=== PATIENT | male | born 1955 | race Caucasian/White ===

== ENCOUNTER 2021-09-08 08:27 | Inpatient (IN) | payer OTHER ==
[~2021-09-08] VITALS: Ht 165.1 cm; Wt 43.4 kg
[~2021-09-08 08:27] MED LIST: ASPI81EC PO; LISI20 PO; METO25ER PO; NAPR500 PO; Norco 5-325 Ta1 EACH PO; SIMV10 PO
[2021-09-08] MEDS ORDERED: MS CONTIN30 M6 PO (08:59)
[2021-09-08] MEDS ORDERED: TRAM50 PO (09:00)
[2021-09-08] MEDS ORDERED: FUROSEMIDE40 MG PO (09:00)
[2021-09-08 09:45] LABS: BASOPHILS ABSOLUTE AUTO 0.02 K/mm3 (0.00-0.23); BASOPHILS PERCENT AUTO 0 % (0-2); EOSINOPHILS PERCENT AUTO 0 % (0-6); Hematocrit 43.6 % (37.0-53.0); Hemoglobin 14.3 g/dL (13.5-17.5); IMMATURE GRAN ABSOLUTE AUTO 0.05 K/mm3 (0.00-0.10); IMMATURE GRAN PERCENT AUTO 0 % (0-1); LYMPHOCYTES ABSOLUTE AUTO 0.55 K/mm3 (0.84-5.20); LYMPHOCYTES PERCENT AUTO 5 % (21-46); MONOCYTES ABSOLUTE AUTO 0.63 K/mm3 (0.16-1.47); MONOCYTES PERCENT AUTO 6 % (4-13); Mean Corpuscular HGB 26.4 pg (26.0-34.0); Mean Corpuscular HGB Conc 32.8 g/dL (31.5-36.5); Mean Corpuscular Volume 81 fL (80-100); Mean Platelet Volume 9.4 fL (9.1-12.4); NEUTROPHILS ABSOLUTE AUTO 9.93 K/mm3 (1.96-9.15); NEUTROPHILS PERCENT AUTO 89 % (41-73); Platelet Count 305 K/mm3 (150-400); RDW Coefficient Variation 14.6 % (11.7-14.2); RDW Standard Deviation 42.8 fL (35.1-46.3); Red Blood Cell Count 5.41 M/mm3 (4.30-5.90); White Blood Cell Count 11.18 K/mm3 (4.00-11.30)
[2021-09-08 10:06] LABS: Alanine Aminotransfer (ALT/SGP 65 U/L (12-78); Albumin, Blood 3.2 g/dL (3.4-5.0); Albumin/Globulin Ratio 0.8 (0.8-1.8); Alk Phos 214 U/L (50-136); Anion Gap 12 mmol/L (6-16); Aspartate Aminotrans (AST/SGOT 60 U/L (12-37); Bilirubin, Total 0.6 mg/dL (0.1-1.0); Blood Urea Nitrogen 15 mg/dL (8-24); Bun/Creatinine Ratio 16.1 (12.0-20.0); CO2, Blood 24 mmol/L (21-32); Calcium, Blood 9.6 mg/dL (8.5-10.1); Chloride, Blood 100 mmol/L (98-108); Creatinine, Blood 0.93 mg/dL (0.60-1.20); Glomerular Filtration Rate >60 (60-); Glucose, Blood 147 mg/dL (70-99); Potassium, Blood 4.1 mmol/L (3.5-5.5); Sodium, Blood 136 mmol/L (136-145); Total Protein, Blood 7.2 g/dL (6.4-8.2)
[2021-09-08 10:29] LABS: Source, Urine Clean Catch
[2021-09-08 10:41] LABS: Appearance, Urine Cloudy (Clear); Bilirubin, Urine Neg (Neg); Blood, Urine 4+ (Neg); Color, Urine Yellow (P-Yellow); Glucose Qualitative, Urine 3+ (Neg); Ketones, Urine 3+ (Neg); Leukocyte Esterase, Urine Neg (Neg); Nitrite, Urine Neg (Neg); Protein, Urine 2+ (Neg); Specific Gravity, Urine 1.025 (1.003-1.022); Urobilinogen, Urine NORM (Normal)
[2021-09-08 10:56] LABS: Bacteria Mod /hpf; Squamous Epithelial Cells Few /hpf (Few); White Blood Cells, Urine 0-2 /hpf (0-5)
[2021-09-08 11:03] LABS: U Amphetamine Screen Not Detected; U Benzodiazapine Screen DETECTED; U Cannabinoids Screen DETECTED; U Opiates Screen DETECTED
[2021-09-08 11:04] LABS: U Barbituate Screen Not Detected; U Buprenorphine Screen Not Detected; U Cocaine Screen Not Detected; U Methadone Screen Not Detected; U Methamphetamine Screen Not Detected; U Oxycodone Screen Not Detected; U Phencyclidine Screen Not Detected; U Propoxyphene Screen Not Detected
[2021-09-08 11:19] LABS: Free Thyroxine 1.3 ng/dL (0.70-1.60); Thyroid Stimulating Hormone 1.26 uIU/mL (0.360-4.800)
[2021-09-08 11:46] LABS: Influenza A, PCR NEGATIVE (NEGATIVE); Influenza B, PCR NEGATIVE (NEGATIVE); Resp Syncytial Virus, PCR NEGATIVE (NEGATIVE); SARS-Cov-2 (COVID-19) PCR, MMC NEGATIVE (NEGATIVE)
[2021-09-08 16:12] LABS: International Normalized Ratio 1.01; Prothrombin Time Results 10.6 Sec (9.7-11.5)
--- NOTE | 2021-09-08 17:36 | NUR ---
Telephone report from [facility] at this time. Anticipate arrival of pt to PCU 1 shortly.
--- NOTE | 2021-09-08 18:23 | NUR ---
PT IS COMPLETELY UNABLE TO GIVE ANY HISTORY OR INFORMAION.
--- NOTE | 2021-09-09 05:37 | NUR ---
SHIFT SUMMARY PATIENT RESPONSIVENESS IMPROVED MODERATLY THROUGHOUT SHIFT. WOULD GET RESTLESS UPON WAKING BUT OTHER NO VERBAL RESPONSE AND NOT FOLLOWING COMMANDS. NOW RESPONDS SOME VERBALLY, NOT YET ORIENTED BUT IMPROVING. DUMONT. FOLLOWING SOME COMMANDS. CONTINUES TO TRY AND PULL LINES AND GET OOB SO BILATERAL WRIST RESTRAINTS AND FALL PRECAUTIONS IN PLACE.PRN ATIVAN GIVEN X2 FOR AGITATION WITH DECENT RELIEF. FENT ADDED FOR PAIN CONTROL PATIENT APPEARS TO BE GRIMACING AND TAKES A LOT OF PAIN MEDS AT HOME. ON RA. VITALS IMPROVED FROM START OF SHIFT WITH HR NOW IN THE 80'S DOWN FROM 120'S. STILL HYPERTENSIVE AT TIMES. NPO UNTIL MENTATION IMPROVES. INCONTINENT OF URINE AND FRESH ATTENDS IN PLACE. Q2H TURNS AND ORAL CARE PERFORMED. IV ABX AND FLUIDS RUNNING PER ORDER. NO ACUTE CONCERNS AT THIS TIME. WILL CONTINUE TO MONITOR UNTIL REPORT GIVEN TO JESSICA RN.
[2021-09-09 05:55] LABS: BASOPHILS ABSOLUTE AUTO 0.04 K/mm3 (0.00-0.23); BASOPHILS PERCENT AUTO 0 % (0-2); EOSINOPHILS PERCENT AUTO 0 % (0-6); Hematocrit 34.4 % (37.0-53.0); Hemoglobin 11.5 g/dL (13.5-17.5); IMMATURE GRAN ABSOLUTE AUTO 0.05 K/mm3 (0.00-0.10); IMMATURE GRAN PERCENT AUTO 0 % (0-1); LYMPHOCYTES ABSOLUTE AUTO 1.27 K/mm3 (0.84-5.20); LYMPHOCYTES PERCENT AUTO 11 % (21-46); MONOCYTES ABSOLUTE AUTO 1.17 K/mm3 (0.16-1.47); MONOCYTES PERCENT AUTO 10 % (4-13); Mean Corpuscular HGB 26.9 pg (26.0-34.0); Mean Corpuscular HGB Conc 33.4 g/dL (31.5-36.5); Mean Corpuscular Volume 80 fL (80-100); Mean Platelet Volume 9.8 fL (9.1-12.4); NEUTROPHILS ABSOLUTE AUTO 9.09 K/mm3 (1.96-9.15); NEUTROPHILS PERCENT AUTO 78 % (41-73); Platelet Count 227 K/mm3 (150-400); RDW Standard Deviation 43.8 fL (35.1-46.3); Red Blood Cell Count 4.28 M/mm3 (4.30-5.90); White Blood Cell Count 11.62 K/mm3 (4.00-11.30)
[2021-09-09 06:03] LABS: International Normalized Ratio 1.03; Prothrombin Time Results 10.8 Sec (9.7-11.5)
[2021-09-09 06:09] LABS: Alanine Aminotransfer (ALT/SGP 44 U/L (12-78); Albumin, Blood 2.3 g/dL (3.4-5.0); Albumin/Globulin Ratio 0.6 (0.8-1.8); Alk Phos 142 U/L (50-136); Anion Gap 10 mmol/L (6-16); Aspartate Aminotrans (AST/SGOT 90 U/L (12-37); Bilirubin, Total 0.4 mg/dL (0.1-1.0); Blood Urea Nitrogen 12 mg/dL (8-24); Bun/Creatinine Ratio 15.2 (12.0-20.0); CO2, Blood 22 mmol/L (21-32); Calcium, Blood 8.1 mg/dL (8.5-10.1); Chloride, Blood 107 mmol/L (98-108); Creatinine, Blood 0.79 mg/dL (0.60-1.20); Globulin, Blood 3.7 g/dL (2.2-4.0); Glomerular Filtration Rate >60 (60-); Glucose, Blood 88 mg/dL (70-99); Magnesium, Blood 1.6 mg/dL (1.6-2.4); Potassium, Blood 3.6 mmol/L (3.5-5.5); Sodium, Blood 139 mmol/L (136-145)
[2021-09-09 11:37] LABS: Automated CSF WBC Count 0.005 K/mm3 (0-5); WBC Count, CSF 5 /mm3 (0-5)
[2021-09-09 11:40] LABS: Automated CSF WBC Count 0.011 K/mm3 (0-5); WBC Count, CSF 11 /mm3 (0-5)
[2021-09-09 12:06] LABS: Color, CSF No Color (No Color); RBC Count, CSF 0 /mm3 (0-0)
[2021-09-09 12:07] LABS: Appearance, CSF Clear (Clear)
[2021-09-09 12:11] LABS: Appearance, CSF Clear (Clear); Color, CSF No Color (No Color); Glucose, CSF 57 mg/dL (40-70); RBC Count, CSF 1 /mm3 (0-0)
[2021-09-09 12:19] LABS: Lymphocytes, CSF 6 % (40-80); Monocytes, CSF 5 % (15-45); Neutrophils, CSF 89 % (0-6)
[2021-09-09 12:23] LABS: Lymphocytes, CSF 2 % (40-80); Monocytes, CSF 4 % (15-45); Neutrophils, CSF 94 % (0-6)
[2021-09-09 12:32] LABS: Cryptococcus Neoformans/Gattii Not Detected (NOT DETECT); Enterovirus Not Detected (NOT DETECT); Escherichia Coli K1 Not Detected (NOT DETECT); Haemophilus Influenza Not Detected (NOT DETECT); Herpes Simplex Virus 1 Not Detected (NOT DETECT); Herpes Simplex Virus 2 Not Detected (NOT DETECT); Human Herpesvirus 6 Not Detected (NOT DETECT); Human Parechovirus Not Detected (NOT DETECT); Listeria Monocytogenes Not Detected (NOT DETECT); Neisseria Meningitidis Not Detected (NOT DETECT); Streptococcus Agalactiae Not Detected (NOT DETECT); Streptococcus Pneumoniae Not Detected (NOT DETECT); Varicella Zoster Virus Not Detected (NOT DETECT)
--- NOTE | 2021-09-09 18:14 | NUR ---
SHIFT SUMMARY; ASSUMED CARE AT 0700, BILATERAL WRIST RESTRAINTS IN PLACE. MOVES ON GURNEY WHEN TOUCHED, OPENS EYES AND SPEAKS ONE WORD ANSWERS WHEN SPOKEN TO. REPOSITIONS SELF IN BED. ATTENDS IN PLACE AND CHANGED SEVERAL TIMES DURING SHIFT. BRUISING NOTED TO SKIN SCATTERED T/O. MEPILEX ON COCCYX IN PLACE. LP COMPLETE TODAY. MOVES ALL FOUR EXTREMETIES BUT DOES NOT FOLLOW COMMANDS. MEDS PER EMAR. WILL CONTINUE TO MONITOR AND TREAT UNTIL CHANGE OF SHIFT.
[2021-09-10 04:11] LABS: BASOPHILS ABSOLUTE AUTO 0.03 K/mm3 (0.00-0.23); BASOPHILS PERCENT AUTO 0 % (0-2); EOSINOPHILS ABSOLUTE AUTO 0.01 K/mm3 (0.00-0.68); EOSINOPHILS PERCENT AUTO 0 % (0-6); Hematocrit 33.1 % (37.0-53.0); Hemoglobin 11.2 g/dL (13.5-17.5); IMMATURE GRAN ABSOLUTE AUTO 0.04 K/mm3 (0.00-0.10); IMMATURE GRAN PERCENT AUTO 0 % (0-1); LYMPHOCYTES ABSOLUTE AUTO 1.05 K/mm3 (0.84-5.20); LYMPHOCYTES PERCENT AUTO 10 % (21-46); MONOCYTES PERCENT AUTO 9 % (4-13); Mean Corpuscular HGB 26.9 pg (26.0-34.0); Mean Corpuscular HGB Conc 33.8 g/dL (31.5-36.5); Mean Corpuscular Volume 80 fL (80-100); Mean Platelet Volume 9.9 fL (9.1-12.4); NEUTROPHILS ABSOLUTE AUTO 8.22 K/mm3 (1.96-9.15); NEUTROPHILS PERCENT AUTO 80 % (41-73); Platelet Count 216 K/mm3 (150-400); RDW Standard Deviation 43.7 fL (35.1-46.3); Red Blood Cell Count 4.16 M/mm3 (4.30-5.90); White Blood Cell Count 10.25 K/mm3 (4.00-11.30)
[2021-09-10 05:03] LABS: Alanine Aminotransfer (ALT/SGP 41 U/L (12-78); Albumin, Blood 2.4 g/dL (3.4-5.0); Albumin/Globulin Ratio 0.8 (0.8-1.8); Alk Phos 125 U/L (50-136); Anion Gap 15 mmol/L (6-16); Aspartate Aminotrans (AST/SGOT 91 U/L (12-37); Bilirubin, Total 0.6 mg/dL (0.1-1.0); Blood Urea Nitrogen 13 mg/dL (8-24); Bun/Creatinine Ratio 14.9 (12.0-20.0); CO2, Blood 19 mmol/L (21-32); Calcium, Blood 8.6 mg/dL (8.5-10.1); Chloride, Blood 106 mmol/L (98-108); Creatinine, Blood 0.87 mg/dL (0.60-1.20); Globulin, Blood 3.2 g/dL (2.2-4.0); Glomerular Filtration Rate >60 (60-); Glucose, Blood 180 mg/dL (70-99); Potassium, Blood 3.5 mmol/L (3.5-5.5); Sodium, Blood 140 mmol/L (136-145); Total Protein, Blood 5.6 g/dL (6.4-8.2)
--- NOTE | 2021-09-10 06:07 | NUR ---
PT IS ALERT AND REGAINING ORIENTATION. CALM COOPERATIVE, APPROPRIATE FOR RESTRAINTE REMOVAL. CHILLS, TEMP 100.8, TACHYCARDIC 120-150. IMPROVED WITH CONTINUIOUS FLUIDS AND ABX. LOOSE MUCOUS STOOL. ORDERED STOOL PANEL.
--- NOTE | 2021-09-10 09:38 | NUR ---
PATIENT ALERT AND ORIENTED TO SELF, PLACE, FAMILY AND DATE. MENTATION STARTING TO CLEAR. PATIENT STATES "I CAN'T BELEIVE I DON'T REMEMBER MY OWN ADDRESS". VERY HAPPY, PLEASENT, AND COOPERATIVE WITH CARE. PERRLA. DENIES NUMBNESS/TINGLING. ABLE TO MOVE ALL EXTREMITIES. WEAK OVERALL AND WEAK BILATERAL CIGAR PATCHER STRENGTH. TELE SHOWING SINUS TACH WITH HR 100-110'S. DENIES CHEST PAIN/PRESSURE. BP STABLE. ON ROOM AIR, LUNGS SOUNDING CLEAR. NO COUGH AT THIS TIME. DENIES ABDOMINAL PAIN/NAUSEA. USING URINAL IN BED. URINE FLORENCIA IN COLOR. NS AND ANTIBIOTICS INFUSING. SKIN OVERALL FRAGILE AND JOYCE. SKIN WARM TO TOUCH. TMAX THIS AM 99.8. BLANKETS REMOVED AND TEMP TURNED DOWN IN ROOM. TOLERATING PO DIET AND PILL WITH WATER. CALL LIGHT IN REACH. TALKING WITH ON PHONE AT THIS TIME. CHEST XRAY DONE THIS AM. WILL CONTINUE TO MONITOR.
--- NOTE | 2021-09-10 13:44 | NUR ---
UPDATE: PATIENT BP ELEVATED. DR. KELLEY CALLED. PRN HYDRALAZINE GIVEN AND HOME MEDS ORDERED. BP NORMALIZING. PHYSICAL THERAPY IN TO WORK WITH PATIENT EARLIER THIS AFTERNOON. PATIENT FELT LIKE HEART WAS BEATING FAST. DENIED CHEST PAIN. HR ELEVATED TO 130'S WITH MOVEMENT. ABLE TO SIT ON EDGE OF BED. NOW BACK IN BED EATING LUNCH. DENIES NEEDS AT THIS TIME. CALL LIGHT IN REACH.
[2021-09-10] MEDS ORDERED: ALDACTONE100 M1 PO (15:58)
[2021-09-10] MEDS ORDERED: DEXA4 PO (15:58)
[2021-09-10 18:38] LABS: Vancomycin, Trough 9.2 ug/mL (5.0-10.0)
--- NOTE | 2021-09-10 18:42 | NUR ---
SHIFT SUMMARY: PATIENT MENTATION CONTINUES TO IMPROVE. NO CHANGES IN TELE, SEE PREVIOUS NOTE. BP STABLE. ON ROOM AIR. DENIES ABDOMINAL PAIN. ABLE TO STAND AND TRANSFER TO CHAIR TO CHANGE LINENS AND BRIEF. PATIENT HAD MODERATE SIZE BROWN AND JELLY LIKE BOWEL MOVEMENT. STOOL SAMPLE SENT TO LAB. USING URINAL AT BEDSIDE. ANTIBIOTICS INFUSED. PATIENT EATING WELL AND DRINKING WATER/JUICES. CALL LIGHT REMAINS IN REACH. BED ALARM ON FOR SAFETY. WILL CONTINUE TO MONITOR AND REPORT OFF.
[2021-09-11 05:08] LABS: BASOPHILS ABSOLUTE AUTO 0.04 K/mm3 (0.00-0.23); BASOPHILS PERCENT AUTO 0 % (0-2); EOSINOPHILS ABSOLUTE AUTO 0.03 K/mm3 (0.00-0.68); EOSINOPHILS PERCENT AUTO 0 % (0-6); Hematocrit 34.3 % (37.0-53.0); Hemoglobin 11.4 g/dL (13.5-17.5); IMMATURE GRAN ABSOLUTE AUTO 0.04 K/mm3 (0.00-0.10); IMMATURE GRAN PERCENT AUTO 0 % (0-1); LYMPHOCYTES ABSOLUTE AUTO 0.97 K/mm3 (0.84-5.20); LYMPHOCYTES PERCENT AUTO 11 % (21-46); MONOCYTES ABSOLUTE AUTO 0.87 K/mm3 (0.16-1.47); MONOCYTES PERCENT AUTO 9 % (4-13); Mean Corpuscular HGB 26.8 pg (26.0-34.0); Mean Corpuscular HGB Conc 33.2 g/dL (31.5-36.5); Mean Corpuscular Volume 81 fL (80-100); Mean Platelet Volume 9.6 fL (9.1-12.4); NEUTROPHILS ABSOLUTE AUTO 7.28 K/mm3 (1.96-9.15); NEUTROPHILS PERCENT AUTO 79 % (41-73); Platelet Count 236 K/mm3 (150-400); RDW Coefficient Variation 15.1 % (11.7-14.2); RDW Standard Deviation 44.2 fL (35.1-46.3); Red Blood Cell Count 4.26 M/mm3 (4.30-5.90); White Blood Cell Count 9.23 K/mm3 (4.00-11.30)
[2021-09-11 05:26] LABS: Albumin, Blood 2.3 g/dL (3.4-5.0); Anion Gap 6 mmol/L (6-16); Blood Urea Nitrogen 11 mg/dL (8-24); Bun/Creatinine Ratio 13.8 (12.0-20.0); CO2, Blood 27 mmol/L (21-32); Calcium, Blood 8.5 mg/dL (8.5-10.1); Chloride, Blood 108 mmol/L (98-108); Glomerular Filtration Rate >60 (60-); Glucose, Blood 108 mg/dL (70-99); Phosphorus, Blood 1.9 mg/dL (2.5-4.9); Potassium, Blood 3.3 mmol/L (3.5-5.5); Sodium, Blood 141 mmol/L (136-145)
--- NOTE | 2021-09-11 10:17 | NUR ---
PATIENT ALERT AND ORIENTED X3. MENTATION CONTINUES TO CLEAR. STILL CONFUSED AT TIMES ABOUT REASON HERE, MEDICATIONS RECIEVING AND WHAT HAPPENED YESTERDAY. PERRLA. ABLE TO MOVE ALL EXTREMITIES. DENIES NUMBNESS/TINGLING. ON ROOM AIR, LUNGS SOUNDING CLEAR. NO TELE. VITAL SIGNS STABLE. EDEMA NOTED IN HANDS AND FEET. TOLERATING PO DIET. DENIES ABDOMINAL PAIN/NAUSEA. USING URINAL IN BED. BED ALARM ON. UP TO BSC WHEN NEEDED WITH ASSISTANCE. DENIES OVERALL PAINS. ANTIBIOTICS INFUSED THIS AM AND POTASSIUM PHOSPHATE INFUSING AT THIS TIME. CALL LIGHT IN REACH. WATCHING TV AT THIS TIME. DENIES NEEDS. WILL CONTINUE TO MONTIOR.
--- NOTE | 2021-09-11 18:39 | NUR ---
SHIFT SUMMARY: MENTATION REMAINS THE SAME. AT TIMES CONFUSING STATEMENTS. TIMELINE OF EVENTS IS OFF. THINKING HE CAME IN LAST NIGHT. NO TELE. REMAINS ON ROOM AIR. EATING WELL. LOTS OF SNACKS. DENIES ABDOMINAL PAIN. UP TO BATHROOM WITH ONE PERSON ASSIST AND WALKER. ONE BOWEL MOVEMENT TODAY. ATTENDS IN PLACE. ANTIBIOTICS INFUSED. VITAL SIGNS STABLE. CALL LIGHT IN REACH. WILL CONTINUE TO MONITOR. BED ALARM ON.
--- NOTE | 2021-09-11 21:54 | NUR ---
ASSUMED CARE OF PATIENT AT 1900. A/OX4. MAINTAINS ABOVE 95% ON RA. LS CLEAR T/O. BLE 2+ PITTING EDEMA (FEET), AND 1+ PITTING EDEMA BUE. PT C/O BEING UNABLE TO SLEEP, MELATONIN WAS ORDERED AND PT IS SLEEPING CURRENTLY. REPORTS NO PAIN, CP/PRESSURE, N/V. WILL UPDATE CHANGES OCCUR.
[2021-09-12 04:30] LABS: BASOPHILS ABSOLUTE AUTO 0.04 K/mm3 (0.00-0.23); BASOPHILS PERCENT AUTO 0 % (0-2); EOSINOPHILS ABSOLUTE AUTO 0.07 K/mm3 (0.00-0.68); EOSINOPHILS PERCENT AUTO 1 % (0-6); Hematocrit 32.3 % (37.0-53.0); Hemoglobin 10.9 g/dL (13.5-17.5); IMMATURE GRAN ABSOLUTE AUTO 0.04 K/mm3 (0.00-0.10); IMMATURE GRAN PERCENT AUTO 0 % (0-1); LYMPHOCYTES ABSOLUTE AUTO 1.33 K/mm3 (0.84-5.20); LYMPHOCYTES PERCENT AUTO 14 % (21-46); MONOCYTES ABSOLUTE AUTO 0.94 K/mm3 (0.16-1.47); MONOCYTES PERCENT AUTO 10 % (4-13); Mean Corpuscular HGB 27.3 pg (26.0-34.0); Mean Corpuscular HGB Conc 33.7 g/dL (31.5-36.5); Mean Corpuscular Volume 81 fL (80-100); Mean Platelet Volume 9.4 fL (9.1-12.4); NEUTROPHILS ABSOLUTE AUTO 7.37 K/mm3 (1.96-9.15); NEUTROPHILS PERCENT AUTO 75 % (41-73); Platelet Count 274 K/mm3 (150-400); White Blood Cell Count 9.79 K/mm3 (4.00-11.30)
[2021-09-12 04:53] LABS: Albumin, Blood 2.3 g/dL (3.4-5.0); Anion Gap 6 mmol/L (6-16); Blood Urea Nitrogen 8 mg/dL (8-24); Bun/Creatinine Ratio 9.8 (12.0-20.0); CO2, Blood 27 mmol/L (21-32); Calcium, Blood 8.6 mg/dL (8.5-10.1); Chloride, Blood 107 mmol/L (98-108); Creatinine, Blood 0.82 mg/dL (0.60-1.20); Glomerular Filtration Rate >60 (60-); Glucose, Blood 116 mg/dL (70-99); Phosphorus, Blood 2.4 mg/dL (2.5-4.9); Potassium, Blood 3.2 mmol/L (3.5-5.5); Sodium, Blood 140 mmol/L (136-145)
[2021-09-12] MEDS ORDERED: LISI20 PO (11:26)
[2021-09-12] MEDS ORDERED: MELATONIN5 M1 PO (11:26)
[2021-09-12] MEDS ORDERED: LEVAQUIN750 MG PO (11:27)
[2021-09-12] MEDS ORDERED: VISBIOME 112.51 EACH PO (11:27)
--- NOTE | 2021-09-12 15:33 | NUR ---
PT DISCHARGED TO HOME WITH DISCHARGE ORDERS, PT TO CONTINUE ABO PO. TO FOLLOW UP WITH PCP POST HOSPITALIZATION, DISCHARGE MEDICATION AND INSTRUCTION DISCLOSED WITH THE PT, PRESCRIPTION SENT TO [facility]. PT VERBALIZED UNDERSTANDING. POWERLGIDE PULLED. ALL BELONGINGS SENT WITH THE PT. ACCOMPANIED BY WHEELCHAIR FOR TRANSPORT. PT WAS ABLE TO WORK WITH OT, CLEARED TO GO HOME WITH HOME HEALTH.
--- NOTE | 2021-09-13 08:39 | NUR ---
Received referral from PCU staff on 09/12/2021. Patient discharged 09/12/2021 with orders for home health and elected [facility]. Contacted patient at number provided on demographic sheet today- 09/13/2021 to further discuss the above. Patient is agreeable to the above. Discussed homebound status definition with patient. Patient verbalized understanding. Discussed what home health is vs what it is not (in home caregivers/housekeeping). Patient verbalized understanding. Discussed the next steps in the process of an initial assessment to determine frequency of visits. Again patient verbalized understanding. Offered a chance for patient to ask questions regarding the above of which there were none. Gathered all supporting documentation for referral (face sheet, face to face, med list, H&P, discharge summary, and most recent PT assessment) and sent to [facility] for review. No further interventions required. Clary Salas Referral Liaison
== END 2021-09-12 12:13 | disposition home health service (06) | DRG 871 ==
LOC: ER 08:27 → ERHOLD 14:25 → PCU 17:59
PROVIDERS: Emergency Medicine; Nurse Practitioner Acute Care; ADMIT Family Medicine
DX: A41.9 Sepsis, unspecified organism (principal); G92.8 Other toxic encephalopathy; R65.21 Severe sepsis with septic shock; C25.9 Malignant neoplasm of pancreas, unspecified; C7A.8 Other malignant neuroendocrine tumors; I82.611 Acute embolism and thrombosis of superficial veins of right upper extremity; E46 Unspecified protein-calorie malnutrition; E86.0 Dehydration; D64.9 Anemia, unspecified; I10 Essential (primary) hypertension; F13.10 Sedative, hypnotic or anxiolytic abuse, uncomplicated; F11.10 Opioid abuse, uncomplicated; F12.10 Cannabis abuse, uncomplicated; E87.6 Hypokalemia; E83.9 Disorder of mineral metabolism, unspecified; Z79.899 Other long term (current) drug therapy; W01.198A Fall on same level from slipping, tripping and stumbling with subsequent striking against other object, initial encounter; Z68.21 Body mass index [BMI] 21.0-21.9, adult; Z78.1 Physical restraint status
CPT/HCPCS: 0241U; 36415; 51701; 62270; 62328; 70450; 71045; 74177; 80053; 80069; 80202; 81001; 82550; 82945; 83605; 83735; 84145; 84157; 84439; 84443; 85025; 85610; 85730; 87015; 87040; 87045; 87046; 87070; 87077; 87086; 87186; 87205; 87483; 87899; 89051; 93005; 93010; 93970; 96361-59; 96365-59; 96368; 96372-59; 96375-59; 96376-59; 97110; 97162; 97166; 97530; 97535; 99285-25; A9270; C1751; G0480; J0133; J0290; J0360; J0696; J1630; J1650; J2060; J3010; J3370; J7030; J7040; J7060; J7120; Q9967

== ENCOUNTER 2021-12-23 15:10 | Inpatient (IN) | payer OTHER ==
[~2021-12-23] VITALS: Ht 172.7 cm; Wt 40.9 kg
[~2021-12-23 15:10] MED LIST changes: +ALDACTONE100 M1 PO; +DEXA4 PO; +FUROSEMIDE40 MG PO; +LEVAQUIN750 MG PO; +MELATONIN5 M1 PO; +MS CONTIN30 M6 PO; +TRAM50 PO; +VISBIOME 112.51 EACH PO
[2021-12-23] MEDS ORDERED: FUROSEMIDE20 MG PO (15:28)
[2021-12-23] MEDS ORDERED: HYDHCL25 PO (15:31)
[2021-12-23] MEDS ORDERED: SPIRONOLACTONE50 MG PO (15:32)
[2021-12-23] MEDS ORDERED: Aspir 8181 MG PO (15:33)
[2021-12-23 15:35] LABS: Calcium, Ionized (POC) 1.27 mmol/L (1.10-1.46); Chloride (POC) 103 mmol/L (98-108); Creatinine (POC) 5.3 mg/dL (0.8-1.3); Glucose (ISTAT POC) 314 mg/dL (70-99); Sodium (POC) 129 mmol/L (135-148); Total CO2 (POC) 17 mmol/L (21-32)
[2021-12-23 15:36] LABS: BASOPHILS ABSOLUTE AUTO 0.01 K/mm3 (0.00-0.23); BASOPHILS PERCENT AUTO 0 % (0-2); EOSINOPHILS PERCENT AUTO 0 % (0-6); Hematocrit 46.1 % (37.0-53.0); Hemoglobin 14.8 g/dL (13.5-17.5); IMMATURE GRAN ABSOLUTE AUTO 0.08 K/mm3 (0.00-0.10); IMMATURE GRAN PERCENT AUTO 1 % (0-1); LYMPHOCYTES ABSOLUTE AUTO 0.83 K/mm3 (0.84-5.20); LYMPHOCYTES PERCENT AUTO 12 % (21-46); MONOCYTES ABSOLUTE AUTO 0.32 K/mm3 (0.16-1.47); MONOCYTES PERCENT AUTO 5 % (4-13); Mean Corpuscular HGB 26.9 pg (26.0-34.0); Mean Corpuscular HGB Conc 32.1 g/dL (31.5-36.5); Mean Corpuscular Volume 84 fL (80-100); Mean Platelet Volume 9.9 fL (9.1-12.4); NEUTROPHILS ABSOLUTE AUTO 5.59 K/mm3 (1.96-9.15); NEUTROPHILS PERCENT AUTO 82 % (41-73); NRBC Auto 1.5 /100 WBC (0.0-0.2); Platelet Count 338 K/mm3 (150-400); RDW Coefficient Variation 14.1 % (11.7-14.2); RDW Standard Deviation 42.7 fL (35.1-46.3); White Blood Cell Count 6.83 K/mm3 (4.00-11.30)
[2021-12-23 15:52] LABS: International Normalized Ratio 1.05
[2021-12-23 16:05] LABS: Magnesium, Blood 2.9 mg/dL (1.6-2.4)
[2021-12-23 16:24] LABS: Base Excess Venous -16.1 mmol/L; Bicarbonate Venous 12.5 mmol/L (24.0-30.0); PCO2 Venous 41.8 mmHg (38-42); PO2 Venous 50.7 mmHg (38-42); pH Blood Venous 7.11 (7.34-7.37)
[2021-12-23 16:28] LABS: Albumin, Blood 2.5 g/dL (3.4-5.0); Albumin/Globulin Ratio 0.5 (0.8-1.8); Bilirubin, Total 0.6 mg/dL (0.1-1.0); Bun/Creatinine Ratio 29.8 (12.0-20.0); Calcium, Blood 10.3 mg/dL (8.5-10.1); Creatinine, Blood 4.94 mg/dL (0.60-1.20); Globulin, Blood 5.2 g/dL (2.2-4.0); Total Protein, Blood 7.7 g/dL (6.4-8.2)
[2021-12-23 16:49] LABS: Influenza A, PCR NEGATIVE (NEGATIVE); Influenza B, PCR NEGATIVE (NEGATIVE); Resp Syncytial Virus, PCR NEGATIVE (NEGATIVE); SARS-Cov-2 (COVID-19) PCR, MMC NEGATIVE (NEGATIVE)
[2021-12-23 19:19] LABS: Albumin, Blood 1.9 g/dL (3.4-5.0); Anion Gap 12 mmol/L (6-16); Blood Urea Nitrogen 125 mg/dL (8-24); Bun/Creatinine Ratio 31.7 (12.0-20.0); CO2, Blood 21 mmol/L (21-32); Chloride, Blood 104 mmol/L (98-108); Creatinine, Blood 3.94 mg/dL (0.60-1.20); Glomerular Filtration Rate 15 (60-); Glucose, Blood 275 mg/dL (70-99); Phosphorus, Blood 6.3 mg/dL (2.5-4.9); Potassium, Blood 6.4 mmol/L (3.5-5.5); Sodium, Blood 137 mmol/L (136-145)
[2021-12-23 21:35] LABS: Albumin, Blood 2.2 g/dL (3.4-5.0); Anion Gap 10 mmol/L (6-16); Blood Urea Nitrogen 128 mg/dL (8-24); Bun/Creatinine Ratio 33.4 (12.0-20.0); CO2, Blood 23 mmol/L (21-32); Calcium, Blood 9.4 mg/dL (8.5-10.1); Chloride, Blood 98 mmol/L (98-108); Creatinine, Blood 3.83 mg/dL (0.60-1.20); Glomerular Filtration Rate 16 (60-); Glucose, Blood 307 mg/dL (70-99); Phosphorus, Blood 6.1 mg/dL (2.5-4.9); Potassium, Blood 6.9 mmol/L (3.5-5.5); Sodium, Blood 131 mmol/L (136-145)
[2021-12-23 23:40] LABS: Bun/Creatinine Ratio 32.8 (12.0-20.0); Calcium, Blood 9.8 mg/dL (8.5-10.1); Creatinine, Blood 3.63 mg/dL (0.60-1.20); Potassium, Blood 5.7 mmol/L (3.5-5.5)
--- NOTE | 2021-12-24 00:58 | NUR ---
PATIENT RESTING COMFORTABLY IN BED, WARM BLANKETS, SIDE RAILS UP, CALL LIGHT IN REACH, BED IN LOWEST POSITION.
--- NOTE | 2021-12-24 01:25 | NUR ---
PATIENT ASSISTED TO STAND TO URINATE. PATIENT'S HR ELEVATED TO 150s. PATIENT WAS ABLE TO STAND AND URINATE WITH STANDBY ASSIST. HELPED BACK TO BED AND COVERED WITH BLANKETS.
--- NOTE | 2021-12-24 02:18 | NUR ---
ASSUMED CARE @2035 PT TRANSFERRED TO ICU 1 FROM ER WITH ACUTE KIDNEY INJURY AND SEVERE HYPERKALEMIA. PT CALLED EMS FOR SOB AND AND "SICKNESS" FOR 1 WEEK. PT ARRIVED WITH SODIUM BICARB INFUSING INTO 20GA IN THE LIBAN. PT HAD RECEIVED 5 UNITS OF HUMULIN R AND CALCIUM GLUCONATE. PATIENT WAS >92% ON RA,HR LOW 100s, SBP 90s. PT WAS COMPLAINING OF BEING COLD AND WAS ACTIVELY SHIVERING, ADDED WARM BLANKETS AND INCREASED ROOM TEMPERATURE, DENIED PAIN OR SHORTNESS OF BREATH, ALERT AND ORIENTED X4. 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 CRITICAL K+ REPORTED TO DR JAMES. 22GA PERIPHERAL IV PAINFUL ON FLUSH, POWERGLIDE PLACEMENT ATTEMPTED, CENTRAL LINE EVENTUALLY PLACED IN R JUGULAR VEIN. CHEST RADIOGRAPH CONFIRMS PLACEMENT. SODIUM BICARB SWITCHED TO CENTRAL LINE. 22GA REMOVED, 20GA LIBAN SALINE LOCK, PATIENT IS ABLE TO STAND TO VOID AND TRANSFER TO BEDSIDE COMMODE WITH STANDBY ASSIST. HR CLIMBS INTO THE 140-150s WHEN PT STANDS. DENIES ANY LIGHTHEADEDNESS. PT HAS MULTIPLE BLANKETS WITH HEAT ON IN ROOM, PT STATES HE IS WARMER AND COMFORTABLE. USES CALL LIGHT APPROPRIATELY. CALL LIGHT IN REACH, BEDRAILS UP, BED IN LOWEST POSITION, NO SLIP SOCKS WORN.
[2021-12-24 04:21] LABS: Hematocrit 34.2 % (37.0-53.0); Hemoglobin 11.8 g/dL (13.5-17.5); Mean Corpuscular HGB 27.1 pg (26.0-34.0); Mean Corpuscular HGB Conc 34.5 g/dL (31.5-36.5); NRBC Auto 1.3 /100 WBC (0.0-0.2); Platelet Count 283 K/mm3 (150-400); RDW Coefficient Variation 13.7 % (11.7-14.2); RDW Standard Deviation 39.1 fL (35.1-46.3); Red Blood Cell Count 4.36 M/mm3 (4.30-5.90); White Blood Cell Count 7.86 K/mm3 (4.00-11.30)
[2021-12-24 04:24] LABS: Mean Corpuscular Volume 78 fL (80-100)
--- NOTE | 2021-12-24 04:35 | NUR ---
PATIENT IS SLEEPING COMFORTABLY. STATES IS NO LONGER COLD. ECG PERFORMED. PATIENT TOOK A FEW SIPS OF ICE WATER. SIDE RAILS UP, BED IN LOWEST POSITION, CALL LIGHT IN REACH.
[2021-12-24 04:42] LABS: Albumin, Blood 2.1 g/dL (3.4-5.0); Albumin/Globulin Ratio 0.6 (0.8-1.8); Bilirubin, Total 0.6 mg/dL (0.1-1.0); Bun/Creatinine Ratio 36.2 (12.0-20.0); Calcium, Blood 9.2 mg/dL (8.5-10.1); Creatinine, Blood 2.98 mg/dL (0.60-1.20); Globulin, Blood 3.8 g/dL (2.2-4.0); Magnesium, Blood 1.9 mg/dL (1.6-2.4); Phosphorus, Blood 3.8 mg/dL (2.5-4.9); Potassium, Blood 5.3 mmol/L (3.5-5.5); Total Protein, Blood 5.9 g/dL (6.4-8.2)
[2021-12-24 04:48] LABS: BAND PERCENT MAN 23 % (0-8); BASOPHILS PERCENT MAN 0 % (0-2); EOSINOPHILS PERCENT MAN 0 % (0-6); LYMPHOCYTES ABSOLUTE MAN 0.15 K/mm3 (0.84-5.20); LYMPHOCYTES PERCENT MAN 2 % (21-46); MONOCYTES ABSOLUTE MAN 0.23 K/mm3 (0.16-1.47); MONOCYTES PERCENT MAN 3 % (4-13); NEUTROPHILS ABSOLUTE MAN 7.46 K/mm3 (1.96-9.15); SEG NEUTROPHILS PERCENT MAN 72 % (41-73); TOTAL CELLS COUNTED 100
--- NOTE | 2021-12-24 05:20 | NUR ---
UPDATE CRITICAL LAB RETURNED OF TROPONIN 146. DR MANN NOTIFIED; NO NEW ORDERS. ALSO MENTIONED THAT AM GLUCOSE WAS 327; NEW ORDER PROVIDED FOR [facility].
--- NOTE | 2021-12-24 05:44 | NUR ---
BICARB D/C, NS 75MLS/HR STARTED @0530. PT STATES HIS TONGUE IS SORE, TAKING SMALL SIPS OF WATER. PT STOOD AND VOIDED USING URINAL AT BEDSIDE, HR ELEVATED TO 140s, O2 SAT DROPPED TO 86%, HR DECREASED TO LOW 100s ONCE BACK IN BED, O2 RETURNED TO 96%. PATIENT DENIES PAIN OR DIZZINESS.
--- NOTE | 2021-12-24 05:53 | NUR ---
END SHIFT SUMMARY PATIENT'S TEMPERATURE GRADUALLY IMPROVED AND PATIENT RESTED COMFORTABLY THROUGH MOST OF THE SHIFT. PATIENT IS PLEASANT, COOPERATIVE, AND COMMUNICATES NEEDS. PT IS ABLE TO STAND BEDSIDE TO URINATE OR USE THE BEDSIDE COMMODE. PT DENIES DIZZINESS OR PAIN. PT HR ELEVATES INTO 140-150s WHEN STANDING, O2 SAT DROPS INTO THE 80s, RETURNS TO HR OF LOW 100s AND O2 OF 96% WHEN SAT BACK DOWN. PATIENT HAS BEEN IN SINUS TACH THROUGHOUT SHIFT. SKIN TEMPERATURE HAS IMPROVD WELL HORSE STUD MANAGER, RENAL LEVELS ARE TRENDING TOWARDS IMPROVEMENT, LIVER VALUES HAVE INCREASED, BG AT 327, TROPONIN INCREASED, LABS COMMUNICATED TO DR MANN BY HELADIO HICKMAN, BICARB D/C AT 0530, NS STARTED @75MLS/HR. PT IS ON A RENAL DIET. ECG PERFORMED. URINE OUTPUT OF 1175MLS REPORT TO AM RN WHEN AVAILABLE.
--- NOTE | 2021-12-24 08:00 | NUR ---
TOOK OVER CARE OF PT AT 0710, PT RESTING ON RA, NS RUNNING AT 75ML/HR, REQUESTING MEDS TO BE GIVEN AT 9AM.
--- NOTE | 2021-12-24 09:32 | NUR ---
AT BEDSIDE, NOTIFIED OF HEMAGLOBIN DROP, TROPONINS, AND VITALS. NO NEW ORDERS AT THIS TIME.
[2021-12-24 12:53] LABS: Percent Saturation 10.8 % (20.0-50.0)
--- NOTE | 2021-12-24 16:57 | NUR ---
PT REQUESTING TO TAKE PO MEDS WHEN DINNER ARRIVES
--- NOTE | 2021-12-24 17:05 | NUR ---
Telephone report received from MARYLOU Alvarez. Anticipate pt arriving to PCU 14 shortly.
--- NOTE | 2021-12-24 17:12 | NUR ---
REPORT GIVEN AND PT TX TO PCU 14
--- NOTE | 2021-12-24 18:12 | NUR ---
Pt arrived to PCU in wheelchair from ICU. Alert, oriented and cooperative pleasantly conversant. Stood and transferred from wheelchair to the bed. States that he is very cold, asking for warm blankets. Lung sounds very diminished. He is extremely thin. Attempted to eat his dinner but c/o pain in his throat and mouth to the point of not being able to swallow. Offered full liquids, cold and hot items, but he said it was too painful. Noted redness in the back of his throat over the uvula and soft palate. Also noted yellow round ulcers on the tip of his tongue. he states he has had this pain for [address] Burger and got magic mouthwash ordered for his relief. Provided blankets and glucerna, which he is sipping and states he drinks this at home also.
[2021-12-24 23:53] LABS: Adenovirus F 40/41 Not Detected (NOT DETECT); Astrovirus Not Detected (NOT DETECT); Campylobacter Sp Not Detected (NOT DETECT); Cryptosporidium Not Detected (NOT DETECT); Cyclospora Cayetanensis Not Detected (NOT DETECT); E. Coli O157 Not Detected (NOT DETECT); Entamoeba Histolytica Not Detected (NOT DETECT); Enteroaggregative E. coli-EAEC Not Detected (NOT DETECT); Enteropathogenic E. coli-EPEC Not Detected (NOT DETECT); Enterotoxigenic E. coli-ETEC Not Detected (NOT DETECT); Giardia Lamblia Not Detected (NOT DETECT); Norovirus GI/GII Not Detected (NOT DETECT); Plesiomonas Shigelloides Not Detected (NOT DETECT); Rotavirus A Not Detected (NOT DETECT); Salmonella Sp Not Detected (NOT DETECT); Shiga Toxin-prod E. coli-STEC Not Detected (NOT DETECT); Shigella/Enteroin E. coli-EIEC Not Detected (NOT DETECT); Vibrio Cholerae Not Detected (NOT DETECT); Vibrio Sp Not Detected (NOT DETECT); Yersinia Enterocolitica Not Detected (NOT DETECT)
[2021-12-24 23:54] LABS: Sapovirus Not Detected (NOT DETECT)
[2021-12-25 05:05] LABS: Hematocrit 32.7 % (37.0-53.0); Hemoglobin 11.2 g/dL (13.5-17.5); Mean Corpuscular HGB 27.8 pg (26.0-34.0); Mean Corpuscular HGB Conc 34.3 g/dL (31.5-36.5); Mean Corpuscular Volume 81 fL (80-100); Mean Platelet Volume 10.1 fL (9.1-12.4); NRBC Auto 1.6 /100 WBC (0.0-0.2); Platelet Count 244 K/mm3 (150-400); RDW Coefficient Variation 13.7 % (11.7-14.2); RDW Standard Deviation 40.7 fL (35.1-46.3); Red Blood Cell Count 4.03 M/mm3 (4.30-5.90); White Blood Cell Count 6.07 K/mm3 (4.00-11.30)
[2021-12-25 05:25] LABS: BAND PERCENT MAN 17 % (0-8); BASOPHILS PERCENT MAN 0 % (0-2); EOSINOPHILS PERCENT MAN 0 % (0-6); LYMPHOCYTES PERCENT MAN 5 % (21-46); MONOCYTES ABSOLUTE MAN 0.18 K/mm3 (0.16-1.47); MONOCYTES PERCENT MAN 3 % (4-13); NEUTROPHILS ABSOLUTE MAN 5.58 K/mm3 (1.96-9.15); SEG NEUTROPHILS PERCENT MAN 75 % (41-73); TOTAL CELLS COUNTED 100
[2021-12-25 05:29] LABS: Anion Gap 6 mmol/L (6-16); Blood Urea Nitrogen 68 mg/dL (8-24); Bun/Creatinine Ratio 37.4 (12.0-20.0); CO2, Blood 29 mmol/L (21-32); Calcium, Blood 8.9 mg/dL (8.5-10.1); Chloride, Blood 104 mmol/L (98-108); Creatinine, Blood 1.82 mg/dL (0.60-1.20); Glomerular Filtration Rate 38 (60-); Glucose, Blood 157 mg/dL (70-99); Phosphorus, Blood 3.9 mg/dL (2.5-4.9); Potassium, Blood 4.8 mmol/L (3.5-5.5); Sodium, Blood 139 mmol/L (136-145)
--- NOTE | 2021-12-25 05:46 | NUR ---
End of shift summary Pt without issues, GI panel sent-- no issues per microbiology, VSS, still with runny stool, probiotic on board, will continue to monitor MARYLOU De Dios
--- NOTE | 2021-12-25 09:34 | NUR ---
DR JAMES AT BEDSIDE THIS AM. NEW ORDER TO DECREASED NS AT 50ML/HR.
--- NOTE | 2021-12-25 09:52 | NUR ---
AM NOTE PATIENT IS ALERT AND ORIENTED, COOPERATIVE WITH CARE. TELE NSR 90'S. SPO2 >90% RA. VSS.
[2021-12-25] MEDS ORDERED: PREDNISOLO15 MG/5 ML PO (15:00)
[2021-12-25] MEDS ORDERED: Xylocaine5 M1 MT (15:02)
[2021-12-25] MEDS ORDERED: NYSTATIN100000 UN1 MT (15:04)
[2021-12-25] MEDS ORDERED: GI COCKTAIL MT (15:09)
[2021-12-25] MEDS ORDERED: DIPHEN12.5 MG/7 MT (15:12)
--- NOTE | 2021-12-25 17:45 | NUR ---
DISCHARGE SUMMARY PATIENT REMAINED ALERT AND ORIENTED, COOPERATIVE WITH CARE T/O SHIFT. PATIENT'S VSS, TELE NSR 90'S, SPO2 >95% RA. PATIENT DENIES CP/PRESSURE, SOB, NUMBNESS/TINGLING AT THIS TIME. PATIENT AND HIS GF WERE PROVIDED WITH DISCHARGE INSTRUCTIONS, MEDICATIONS, RETURN PRECAUTIONS, S/SX OF WORSENING CONDITIONS, FOLLOW UP APPOINTMENTS. MEDICATIONS WERE CALLED IN TO [facility]. PATIENT WAS WHEELED TO HIS CAR, TRANSPORTATION WAS PROVIDED VIA HIS , R[facility]. PATIENT LEFT IN GOOD CONDITION.
--- NOTE | 2021-12-25 18:21 | NUR ---
SHIFT SUMMARY I HAVE REVIEWED THE NURSING STUDENTS DOCUMENTATION AND AN IN AGREEMENT. CENTRAL LINE PULLED THIS AFTENROON, HELD PRESSURE AND PT REMAINED FLAT FOR 30+ MINUTES CATH REMOVAL. PT REPORTING BURNING IN ABD/STOMACH AFTER EATING, DISIPATED OVER TIME, NOTIFIED DR TY. EDUCATED PT ON DISCHARGE INSTURCTIONS, FOLLOW UP APPOINTMENTS, MEDICATIONS AND FOLLOW UP LAB. PHYSICAL ORDER GIVEN FOR LAB DRAW. NO S/SX OF DISTRESS NOTED T/O SHIFT. PT DISCHARGED HOME.
== END 2021-12-25 16:55 | disposition home or self-care (01) | DRG 683 ==
LOC: ER 15:10 → ICUE 20:04 → ICUW 20:04 → ICUE 20:41 → PCU 12-24 17:11
PROVIDERS: Emergency Medicine; Internal Medicine; Internal Medicine Nephrology; ADMIT Internal Medicine
DX: N17.9 Acute kidney failure, unspecified (principal); I47.2 Ventricular tachycardia; E87.2 Acidosis; E87.1 Hypo-osmolality and hyponatremia; Z20.822 Contact with and (suspected) exposure to COVID-19; E87.5 Hyperkalemia; R94.31 Abnormal electrocardiogram [ECG] [EKG]; R19.7 Diarrhea, unspecified; E86.9 Volume depletion, unspecified; K13.79 Other lesions of oral mucosa; I12.9 Hypertensive chronic kidney disease with stage 1 through stage 4 chronic kidney disease, or unspecified chronic kidney disease; E11.22 Type 2 diabetes mellitus with diabetic chronic kidney disease; N18.9 Chronic kidney disease, unspecified; I25.10 Atherosclerotic heart disease of native coronary artery without angina pectoris; D63.1 Anemia in chronic kidney disease; N25.81 Secondary hyperparathyroidism of renal origin; Z88.8 Allergy status to other drugs, medicaments and biological substances; Z79.899 Other long term (current) drug therapy; Z90.49 Acquired absence of other specified parts of digestive tract; Z79.82 Long term (current) use of aspirin; Z95.5 Presence of coronary angioplasty implant and graft; Z90.81 Acquired absence of spleen; Z90.411 Acquired partial absence of pancreas; Z85.07 Personal history of malignant neoplasm of pancreas; Z98.890 Other specified postprocedural states; Z87.891 Personal history of nicotine dependence
CPT/HCPCS: 0241U; 36415; 36556; 71045; 76770; 80047; 80048; 80053; 80069; 82435; 82728; 82803; 82947; 83540; 83550; 83735; 84100; 84132; 84295; 84484; 85014; 85025; 85610; 85730; 87507; 93005; 93010; 93306; 96365; 96366; 96367; 99285-25; A9270; C1751; J0282; J0610; J1644; J1815; J7030; J7060; J7070

== ENCOUNTER 2022-02-25 15:16 | Emergency (ER) | payer OTHER ==
[~2022-02-25] VITALS: Ht 172.7 cm; Wt 49.9 kg
[~2022-02-25 15:16] MED LIST changes: +Aspir 8181 MG PO; +DIPHEN12.5 MG/7 MT; +FUROSEMIDE20 MG PO; +GI COCKTAIL MT; +HYDHCL25 PO; +NYSTATIN100000 UN1 MT; +PREDNISOLO15 MG/5 ML PO; +SPIRONOLACTONE50 MG PO; +Xylocaine5 M1 MT
[2022-02-25] MEDS ORDERED: HYDR1TAB94 PO (16:16)
== END 2022-02-25 16:40 | disposition home or self-care (01) ==
LOC: ER 15:16
DX: B02.39 Other herpes zoster eye disease (principal); E11.9 Type 2 diabetes mellitus without complications; C22.9 Malignant neoplasm of liver, not specified as primary or secondary; Z79.899 Other long term (current) drug therapy; Z88.5 Allergy status to narcotic agent
CPT/HCPCS: A9270

== ENCOUNTER 2022-03-14 14:51 | Emergency (ER) | payer OTHER ==
[~2022-03-14] VITALS: Ht 172.7 cm; Wt 59.0 kg
[~2022-03-14 14:51] MED LIST changes: +HYDR1TAB94 PO
[2022-03-14] MEDS ORDERED: CEPH500 PO (16:51)
== END 2022-03-14 17:16 | disposition home or self-care (01) ==
LOC: ER 14:51
DX: S51.001A Unspecified open wound of right elbow, initial encounter (principal); W19.XXXA Unspecified fall, initial encounter; E11.9 Type 2 diabetes mellitus without complications; Z88.5 Allergy status to narcotic agent; Z79.899 Other long term (current) drug therapy
CPT/HCPCS: 73070; A9270

== ENCOUNTER → 2022-03-16 | Outpatient (CLI) | payer OTHER ==
[~2022-03-16] MED LIST changes: +CEPH500 PO
== END | disposition home or self-care (01) ==
LOC: LAB SHORT 11:39 → LAB 11:39
DX: L02.91 Cutaneous abscess, unspecified (principal); B02.39 Other herpes zoster eye disease
CPT/HCPCS: 87070; 87075; 87077; 87147; 87186; 87205

== ENCOUNTER 2022-03-21 13:31 | Emergency (ER) | payer OTHER ==
[~2022-03-21] VITALS: Ht 172.7 cm; Wt 45.4 kg
[2022-03-21 15:22] LABS: Albumin, Blood 2.9 g/dL (3.4-5.0); Albumin/Globulin Ratio 0.8 (0.8-1.8); Bilirubin, Total 0.4 mg/dL (0.1-1.0); Bun/Creatinine Ratio 8.2 (12.0-20.0); C-REACTIVE PROTEIN, EXT RANGE 4.72 mg/dL (0.000-0.300); Creatinine, Blood 4.16 mg/dL (0.60-1.20); Globulin, Blood 3.7 g/dL (2.2-4.0); Potassium, Blood 3.6 mmol/L (3.5-5.5); Total Protein, Blood 6.6 g/dL (6.4-8.2)
[2022-03-21 18:58] LABS: Source, Urine Clean Catch
[2022-03-21 19:05] LABS: BASOPHILS ABSOLUTE AUTO 0.01 K/mm3 (0.00-0.23); BASOPHILS PERCENT AUTO 0 % (0-2); EOSINOPHILS ABSOLUTE AUTO 0.01 K/mm3 (0.00-0.68); EOSINOPHILS PERCENT AUTO 0 % (0-6); Hematocrit 34.6 % (37.0-53.0); IMMATURE GRAN ABSOLUTE AUTO 0.06 K/mm3 (0.00-0.10); IMMATURE GRAN PERCENT AUTO 1 % (0-1); LYMPHOCYTES ABSOLUTE AUTO 1.72 K/mm3 (0.84-5.20); LYMPHOCYTES PERCENT AUTO 23 % (21-46); MONOCYTES PERCENT AUTO 11 % (4-13); Mean Corpuscular HGB 26.2 pg (26.0-34.0); Mean Corpuscular HGB Conc 31.8 g/dL (31.5-36.5); Mean Corpuscular Volume 82 fL (80-100); Mean Platelet Volume 9.4 fL (9.1-12.4); NEUTROPHILS ABSOLUTE AUTO 5.01 K/mm3 (1.96-9.15); NEUTROPHILS PERCENT AUTO 66 % (41-73); NRBC ABSOLUTE 0.03 K/mm3 (0.00-0.02); NRBC Auto 0.4 /100 WBC (0.0-0.2); Platelet Count 453 K/mm3 (150-400); RDW Coefficient Variation 15.3 % (11.7-14.2); RDW Standard Deviation 46.2 fL (35.1-46.3); White Blood Cell Count 7.61 K/mm3 (4.00-11.30)
[2022-03-21 19:15] LABS: Appearance, Urine Hazy (Clear); Blood, Urine 1+ (Neg); Color, Urine Yellow (P-Yellow); Glucose Qualitative, Urine 3+ (Neg); Ketones, Urine 1+ (Neg); Leukocyte Esterase, Urine 1+ (Neg); Nitrite, Urine Pos (Neg); Protein, Urine 2+ (Neg); Urobilinogen, Urine NORM (Normal)
[2022-03-21 19:21] LABS: Bilirubin, Urine 1+ (Neg)
[2022-03-21 19:24] LABS: Amorphous Light (0-Heavy); Bacteria Many /hpf; Calcium Oxalate Crystals Mod /hpf; Granular Casts 0-2 /lpf (0); Squamous Epithelial Cells Few /hpf (Few)
== END 2022-03-21 20:38 | disposition left against medical advice (07) ==
LOC: ER 13:31
PROVIDERS: Emergency Medicine; Physician Assistant
DX: N17.9 Acute kidney failure, unspecified (principal); N39.0 Urinary tract infection, site not specified; B02.9 Zoster without complications; L03.211 Cellulitis of face; L29.9 Pruritus, unspecified; E11.9 Type 2 diabetes mellitus without complications; Z88.5 Allergy status to narcotic agent; Z79.899 Other long term (current) drug therapy; Z79.82 Long term (current) use of aspirin; Z79.52 Long term (current) use of systemic steroids
CPT/HCPCS: 80053; 81001; 85025; 86140; 87086; 99283; A9270; J7030

== ENCOUNTER 2022-03-28 12:59 | Emergency (ER) | payer OTHER ==
[~2022-03-28] VITALS: Ht 172.7 cm; Wt 49.9 kg
== END 2022-03-28 14:54 | disposition home or self-care (01) ==
LOC: ER 12:59
DX: R04.0 Epistaxis (principal); E11.9 Type 2 diabetes mellitus without complications; Z88.5 Allergy status to narcotic agent; Z79.899 Other long term (current) drug therapy; Z79.52 Long term (current) use of systemic steroids; Z79.82 Long term (current) use of aspirin
CPT/HCPCS: 99283

== ENCOUNTER 2022-05-12 01:14 | Day surgery (SDC) | payer OTHER | END 2022-05-12 22:56 | disposition home or self-care (01) | LOC: WOUND 01:14 | DX: S51.001A Unspecified open wound of right elbow, initial encounter (principal); W19.XXXA Unspecified fall, initial encounter; E11.628 Type 2 diabetes mellitus with other skin complications; E11.622 Type 2 diabetes mellitus with other skin ulcer; S51.001D Unspecified open wound of right elbow, subsequent encounter; Z87.891 Personal history of nicotine dependence; I10 Essential (primary) hypertension; I25.2 Old myocardial infarction; Z95.5 Presence of coronary angioplasty implant and graft | CPT/HCPCS: A9270; G0463 ==

== ENCOUNTER 2022-06-09 03:01 | Day surgery (SDC) | payer MEDICARE, OTHER | END 2022-06-10 00:04 | disposition home or self-care (01) | LOC: WOUND 03:01 | DX: L89.013 Pressure ulcer of right elbow, stage 3 (principal); S51.001D Unspecified open wound of right elbow, subsequent encounter; X58.XXXD Exposure to other specified factors, subsequent encounter; E11.622 Type 2 diabetes mellitus with other skin ulcer; E11.628 Type 2 diabetes mellitus with other skin complications | CPT/HCPCS: A9270; G0463 ==

== ENCOUNTER 2022-06-23 03:19 | Day surgery (SDC) | payer MEDICARE, OTHER | END 2022-06-23 23:31 | disposition home or self-care (01) | LOC: WOUND 03:19 | DX: L89.013 Pressure ulcer of right elbow, stage 3 (principal); S51.001D Unspecified open wound of right elbow, subsequent encounter; W19.XXXD Unspecified fall, subsequent encounter; E11.622 Type 2 diabetes mellitus with other skin ulcer; E11.628 Type 2 diabetes mellitus with other skin complications; I10 Essential (primary) hypertension | CPT/HCPCS: A9270; G0463 ==

== ENCOUNTER 2022-06-30 01:11 | Day surgery (SDC) | payer MEDICARE, OTHER | END 2022-06-30 23:16 | disposition home or self-care (01) | LOC: WOUND 01:11 | DX: L89.013 Pressure ulcer of right elbow, stage 3 (principal); E11.622 Type 2 diabetes mellitus with other skin ulcer; I10 Essential (primary) hypertension | CPT/HCPCS: G0463 ==

== ENCOUNTER 2022-07-14 01:30 | Day surgery (SDC) | payer MEDICARE, OTHER | END 2022-07-14 23:10 | disposition home or self-care (01) | LOC: WOUND 01:30 | DX: E11.622 Type 2 diabetes mellitus with other skin ulcer (principal); E11.628 Type 2 diabetes mellitus with other skin complications; S51.001D Unspecified open wound of right elbow, subsequent encounter | CPT/HCPCS: G0463 ==

== ENCOUNTER 2023-02-17 22:19 | Inpatient (IN) | payer MEDICARE, OTHER ==
[~2023-02-17] VITALS: Ht 172.7 cm; Wt 39.7 kg
[~2023-02-17 22:19] MED LIST changes: +METO25 PO; -METO25ER PO; +PREDNISOLO15 MG/5 ML LEFTEYE; -PREDNISOLO15 MG/5 ML PO
[2023-02-17 22:56] LABS: BASOPHILS ABSOLUTE AUTO 0.08 K/mm3 (0.00-0.23); BASOPHILS PERCENT AUTO 1 % (0-2); EOSINOPHILS ABSOLUTE AUTO 0.02 K/mm3 (0.00-0.68); EOSINOPHILS PERCENT AUTO 0 % (0-6); Hematocrit 38.8 % (37.0-53.0); Hemoglobin 12.5 g/dL (13.5-17.5); Mean Corpuscular HGB 28.5 pg (26.0-34.0); Mean Corpuscular HGB Conc 32.2 g/dL (31.5-36.5); Mean Corpuscular Volume 89 fL (80-100); Mean Platelet Volume 9.7 fL (9.1-12.4); NRBC ABSOLUTE 0.02 K/mm3 (0.00-0.02); NRBC Auto 0.1 /100 WBC (0.0-0.2); Platelet Count 583 K/mm3 (150-400); RDW Standard Deviation 45.5 fL (35.1-46.3); Red Blood Cell Count 4.38 M/mm3 (4.30-5.90); White Blood Cell Count 17.18 K/mm3 (4.00-11.30)
[2023-02-17 23:07] LABS: Albumin, Blood 2.6 g/dL (3.4-5.0); Albumin/Globulin Ratio 0.6 (0.8-1.8); Bilirubin, Total 0.5 mg/dL (0.1-1.0); Bun/Creatinine Ratio 31.8 (12.0-20.0); Calcium, Blood 9.6 mg/dL (8.5-10.1); Creatinine, Blood 0.79 mg/dL (0.60-1.20); Globulin, Blood 4.3 g/dL (2.2-4.0); Potassium, Blood 4.9 mmol/L (3.5-5.5); Total Protein, Blood 6.9 g/dL (6.4-8.2)
[2023-02-17 23:14] LABS: IMMATURE GRAN ABSOLUTE AUTO 0.14 K/mm3 (0.00-0.10); IMMATURE GRAN PERCENT AUTO 1 % (0-1); LYMPHOCYTES ABSOLUTE AUTO 6.56 K/mm3 (0.84-5.20); LYMPHOCYTES PERCENT AUTO 38 % (21-46); MONOCYTES ABSOLUTE AUTO 1.15 K/mm3 (0.16-1.47); MONOCYTES PERCENT AUTO 7 % (4-13); NEUTROPHILS ABSOLUTE AUTO 9.23 K/mm3 (1.96-9.15); NEUTROPHILS PERCENT AUTO 54 % (41-73)
[2023-02-18 03:40] LABS: BASOPHILS ABSOLUTE AUTO 0.07 K/mm3 (0.00-0.23); BASOPHILS PERCENT AUTO 1 % (0-2); EOSINOPHILS ABSOLUTE AUTO 0.04 K/mm3 (0.00-0.68); EOSINOPHILS PERCENT AUTO 0 % (0-6); Hematocrit 38.8 % (37.0-53.0); Hemoglobin 12.4 g/dL (13.5-17.5); IMMATURE GRAN ABSOLUTE AUTO 0.17 K/mm3 (0.00-0.10); IMMATURE GRAN PERCENT AUTO 1 % (0-1); LYMPHOCYTES ABSOLUTE AUTO 4.21 K/mm3 (0.84-5.20); LYMPHOCYTES PERCENT AUTO 30 % (21-46); MONOCYTES ABSOLUTE AUTO 1.18 K/mm3 (0.16-1.47); MONOCYTES PERCENT AUTO 8 % (4-13); Mean Corpuscular HGB 28.7 pg (26.0-34.0); Mean Corpuscular Volume 90 fL (80-100); Mean Platelet Volume 9.6 fL (9.1-12.4); NEUTROPHILS ABSOLUTE AUTO 8.62 K/mm3 (1.96-9.15); NEUTROPHILS PERCENT AUTO 60 % (41-73); NRBC ABSOLUTE 0.03 K/mm3 (0.00-0.02); NRBC Auto 0.2 /100 WBC (0.0-0.2); Platelet Count 563 K/mm3 (150-400); RDW Coefficient Variation 14.1 % (11.7-14.2); RDW Standard Deviation 46.4 fL (35.1-46.3); Red Blood Cell Count 4.32 M/mm3 (4.30-5.90); White Blood Cell Count 14.29 K/mm3 (4.00-11.30)
[2023-02-18 03:56] LABS: Albumin, Blood 2.3 g/dL (3.4-5.0); Albumin/Globulin Ratio 0.6 (0.8-1.8); Bilirubin, Total 0.5 mg/dL (0.1-1.0); Bun/Creatinine Ratio 28.1 (12.0-20.0); Calcium, Blood 8.8 mg/dL (8.5-10.1); Creatinine, Blood 0.71 mg/dL (0.60-1.20); Magnesium, Blood 2.1 mg/dL (1.6-2.4); Potassium, Blood 4.5 mmol/L (3.5-5.5); Total Protein, Blood 6.3 g/dL (6.4-8.2)
[2023-02-18 05:31] VITALS: BP 128/80
--- NOTE | 2023-02-18 07:23 | NUR ---
LATEX DIPPER SUMMARY/NEW ADMIT PT PLEASANT AND COOPERATIVE. ANSWERS QUESTIONS APPROPRIATELY. POOR HISTORIAN WITH SOME CONFUSION/FORGETFULNESS. SKIN ASSESSMENT--2 ELBOW WOUNDS, COCCYX WOUND, AND LEGION ON FOREHEAD (LEFT FROM SHINGLES). PT ON BEDREST. ORIENTED TO ROOM AND CALL LIGHT. PT C/O OF SIGNIFICANT PAIN IN STOMACH. MED PER EMAR. LR AT 75ML HR.
[2023-02-18 07:53] VITALS: BP 112/81
[2023-02-18] MEDS ORDERED: LISI20 PO (09:32)
[2023-02-18 15:15] VITALS: BP 123/89
--- NOTE | 2023-02-18 18:40 | NUR ---
PT QUITE PLEASANT TODAY. PAIN MANAGED WITH AVAIL MEDS. ZOFRAN PRIOR TO DINNER REALLY HELPED PER PT. ABLE TO GET DOWN SOME MEAT AND 1/2 OF GLUCERNA. OKAYED ANY DIET HE MIGHT EAT. UPGRADED FROM BRAT TO ADA. + GLUCERNA AND BANANA. PT STATES PRETTY TIRED BANANAS. MAY LIKE TO CUT BACK TOMORROW. PT STATES HE DOES NOT HAVE ANY PAIN MED OR ZOFRAN AT HOME. THIS SEEMED TO HELP SOME. NO OTHER CONCERNS NOTED. BED IN LOW POSITION, CALL LITE IN REACH, CALLS APPROP
[2023-02-18 20:08] VITALS: BP 114/85
[2023-02-19 01:55] VITALS: BP 116/85
[2023-02-19 05:24] LABS: BASOPHILS ABSOLUTE AUTO 0.05 K/mm3 (0.00-0.23); BASOPHILS PERCENT AUTO 0 % (0-2); EOSINOPHILS PERCENT AUTO 1 % (0-6); Hematocrit 32.5 % (37.0-53.0); Hemoglobin 10.6 g/dL (13.5-17.5); IMMATURE GRAN ABSOLUTE AUTO 0.14 K/mm3 (0.00-0.10); IMMATURE GRAN PERCENT AUTO 1 % (0-1); LYMPHOCYTES ABSOLUTE AUTO 3.61 K/mm3 (0.84-5.20); LYMPHOCYTES PERCENT AUTO 28 % (21-46); MONOCYTES ABSOLUTE AUTO 1.18 K/mm3 (0.16-1.47); MONOCYTES PERCENT AUTO 9 % (4-13); Mean Corpuscular HGB 28.6 pg (26.0-34.0); Mean Corpuscular HGB Conc 32.6 g/dL (31.5-36.5); Mean Corpuscular Volume 88 fL (80-100); Mean Platelet Volume 9.5 fL (9.1-12.4); NEUTROPHILS ABSOLUTE AUTO 7.97 K/mm3 (1.96-9.15); NEUTROPHILS PERCENT AUTO 61 % (41-73); NRBC ABSOLUTE 0.04 K/mm3 (0.00-0.02); NRBC Auto 0.3 /100 WBC (0.0-0.2); Platelet Count 508 K/mm3 (150-400); RDW Standard Deviation 44.6 fL (35.1-46.3); Red Blood Cell Count 3.71 M/mm3 (4.30-5.90); White Blood Cell Count 13.05 K/mm3 (4.00-11.30)
[2023-02-19 05:48] LABS: Bun/Creatinine Ratio 18.9 (12.0-20.0); Calcium, Blood 8.6 mg/dL (8.5-10.1); Creatinine, Blood 0.69 mg/dL (0.60-1.20); Potassium, Blood 3.8 mmol/L (3.5-5.5)
[2023-02-19 07:21] VITALS: BP 123/80
--- NOTE | 2023-02-19 07:22 | NUR ---
A&OX4, PLEASANT AND COOPERATIVE WITH CARE. PATIENT HAD 8/10 DISCOMFORT IN HIS LOWER ABDOMEN MULTIPLE TIMES WHEN CHECKED ON OVERNIGHT. NO DISCOMFORT IN THE CHEST AROUND THE LUNGS HE HAD EXPECTED. DISCOMFORT WAS MANAGED WELL WITH 50MCG FENTANYL TO BREAK THE PAIN CYCLE, AND OXYCODONE TO CARRY HIM THROUGH UNTIL HIS NEXT DOSE. PATIENT TOLERATING Q6 IV ZOSYN WITHOUT DIFFICULTY. CONTINENT OF CLEAR YELLOW URINE PER URINAL.
[2023-02-19 15:17] VITALS: BP 110/84
--- NOTE | 2023-02-19 15:40 | NUR ---
Initial Pal Care visit after review of EMR and case conference with pt's Dr. Pt agreeable to my visit and conversation about his s/s, goals of care and wishes. He has spoken with FULL STACK ENGINEER from his oncology service and understands that his prognosis with/without treatment is poor and no treatment was recommended outside of supportive palliative care/hospice. Pt states this is what he would like. He reports his pain as severe and that the current pain medication being given is no longer working well or at all sometimes. Pt is on oxycodone 5mg q4 hrs prn. Pt states, "I try to be polite and say my pain is better but it really isn't and I just can't do this any more". We discussed plan, per prev conversation with his Dr, of adding a longer acting scheduled analgesic and continuing his current PO analgesic as a breakthru rx. Pt agreeable to this. I discussed increased side effects of sleepiness that may subside once his body aclimates to increased dosage. After seeing pt for assessment, I also recommended increasing the oxycodone to 5-10 mg q4hrs prn breakthru pain uncontrolled by oxycontin 10mg bid and adding ativan 0.5-1mg PO prn for anxiety/restlessness. When asked about anxiety, restlessness or insomnia pt states he is not able to sleep and he is feeling anxious/restless nearly all the time, especially with his increased level of pain and fear that it will get worse and will not be controlled/treated. After discussion and assessment of s/s I spoke with pt re: code status. Pt does not want any intervention beyond comfort measures and requests to be a DNR. POLST completed with him, including confirming that his proxy and emergency contact of choice is his fiVira wiley [phone]. After POLST signed copy sent to medical records and placed on chart. The original and additional copies placed in pt's folder in chart for homegoing. All of above discussed with CM after my visits. Pt states he would like one of the local Hospice agencies. Time spent listening and supporting pt in his decision making, answering questions re: how hospice works, who would be visiting at home, etc. Planned with pt to visit again in am to check on s/s management and continue supportive visits.
--- NOTE | 2023-02-19 18:48 | NUR ---
SHIFT SUMMARY: PAIN AND NAUSEA ARE BETTER MANAGED WITH UPDATE MEDICATION ORDERS. HAVING DIARRHEA, WILL HOLD COLACE GOING FORWARD. USING URINAL. DRESSINGS CHANGED ON BILATERAL ELBOWS. COMPAZINE WORKS BETTER FOR HIS NAUSEA. PLAN IS TO GO HOME WITH HOSPICE. PT'S REQUESTED WC TRANSPORT WHEN PT IS DISCHARGED.
[2023-02-19 19:34] VITALS: BP 101/79
--- NOTE | 2023-02-20 03:44 | NUR ---
ELECTRONIC COMPONENT PROCESSOR SUMARY VSS. IVF OF LR INFUSING AT 75 ML/HR, SWITCHED WITH NS AND ANTIBIOTICS PER MAR. RECEIVING ANALGESICS FOR PAIN ORDERED, ALSO PT REQUESTS - SEE MAR FOR DETAILS. HAS BEEN RESTING QUIETLY WITH FEW INTERRUPTIONS WITH HOB ELEVATED FOR COMFORT. MEPILEX DRESSINGS INTACT. CALL LIGHT IN REACH. WILL CONTINUE TO MONITOR.
[2023-02-20 05:34] LABS: BASOPHILS ABSOLUTE AUTO 0.04 K/mm3 (0.00-0.23); BASOPHILS PERCENT AUTO 0 % (0-2); EOSINOPHILS ABSOLUTE AUTO 0.07 K/mm3 (0.00-0.68); EOSINOPHILS PERCENT AUTO 1 % (0-6); Hematocrit 34.4 % (37.0-53.0); IMMATURE GRAN ABSOLUTE AUTO 0.13 K/mm3 (0.00-0.10); IMMATURE GRAN PERCENT AUTO 1 % (0-1); LYMPHOCYTES ABSOLUTE AUTO 3.16 K/mm3 (0.84-5.20); LYMPHOCYTES PERCENT AUTO 27 % (21-46); MONOCYTES ABSOLUTE AUTO 0.98 K/mm3 (0.16-1.47); MONOCYTES PERCENT AUTO 8 % (4-13); Mean Corpuscular HGB 28.5 pg (26.0-34.0); Mean Corpuscular Volume 89 fL (80-100); Mean Platelet Volume 9.5 fL (9.1-12.4); NEUTROPHILS ABSOLUTE AUTO 7.28 K/mm3 (1.96-9.15); NEUTROPHILS PERCENT AUTO 63 % (41-73); NRBC ABSOLUTE 0.04 K/mm3 (0.00-0.02); NRBC Auto 0.3 /100 WBC (0.0-0.2); Platelet Count 515 K/mm3 (150-400); RDW Coefficient Variation 14.2 % (11.7-14.2); RDW Standard Deviation 45.8 fL (35.1-46.3); Red Blood Cell Count 3.86 M/mm3 (4.30-5.90); White Blood Cell Count 11.66 K/mm3 (4.00-11.30)
[2023-02-20 07:19] VITALS: BP 116/91
--- NOTE | 2023-02-20 13:30 | NUR ---
Pal Care follow up visit/assessment and case conf with nursing, hospitalist and CM. Pt smiling and finishing his lunch upon my arrival. He looks far more rested and reports he slept last night for the first time in a very long time. He reports the ativan started yesterday, new long acting PO analgesics and rx for nausea have improved his s/s of nausea, pain, restlessness and anorexia "a lot". The improvement in pt's demeanor and nonverbal indicators of pain and anxiety is remarkable. Pt and I reviewed medication changes, current rxs & his scheduled vs prn medications. Notes added to the white board for his reference. He states he is currently at a level 5/10 and feels it is time for one of his pain pills. This was relayed to nursing and pt received Rx shortly after per eMAR. Pt aware that hospice is being set up for him on d/c. I informed him that CM was working with [facility] for DME and coordinating transport home and admission visit. D/c tentatively planned for tomorrow pending continued improvement in pain management, nausea, anxiety.
[2023-02-20 14:41] VITALS: BP 116/82
--- NOTE | 2023-02-20 19:18 | NUR ---
SHIFT SUMMARY: NO ACUTE EVENTS. IV ACCESS LOST THIS AFTERNOON AND THIS AUTHOR UNABLE TO GET NEW ACCESS. MEDICATIONS CHANGED TO PO. PAIN IS MUCH BETTER MANAGED IS NAUSEA (ATIVAN WORKS WELL FOR HIM); HE WAS ABLE TO EAT A WHOLE HAMBURGER FOR LUNCH AND DINNER, WHICH MADE HIM VERY HAPPY. PLAN IS TO GO HOME WITH HOSPICE TOMORROW. PT EXPRESSED ANXIETY ABOUT HAVING A LAG IN PAIN MEDICATION BETWEEN THE TIME HE LEAVES THE HOSPITAL AND WHEN HE IS ADMITTED TO HOSPICE AND NOT HAVING PAIN MEDS AVAILABLE DURING THAT TIME. ENDORSED THIS TO NOC MARYLOU WALL AND ASKED TO HAVE THIS PASSED ON SO PT IS ADEQUATELY MEDICATED PRIOR TO D/C HOME.
--- NOTE | 2023-02-20 19:21 | NUR ---
AWAKE. SMILING IN BED WITH HOB ELEVATED. CALL LIGHT IN REACH
[2023-02-20 19:22] VITALS: BP 113/81
[2023-02-21 02:25] VITALS: BP 135/83
--- NOTE | 2023-02-21 04:39 | NUR ---
BUS REPAIR SUPERVISOR SUMMARY VSS. AFFECT POSITIVE, DISCUSSED END OF LIFE OK LONG HE CAN KEEP PAIN UNDER CONTROL. HAS RECEIVED ANALGESICS - SEE MAR FOR DETAILS. HAS BEEN RESTING QUIETLY WITH FWE INTERRUPTIONS. CALL LIGHT IN REACH. WILL CONTINUE TO MONITOR.
[2023-02-21] MEDS ORDERED: METO25ER PO (10:12)
[2023-02-21] MEDS ORDERED: ACET325 PO (10:14)
[2023-02-21] MEDS ORDERED: BANOPHEN25 MG PO (10:15)
[2023-02-21] MEDS ORDERED: AMOCLA875 PO (10:15)
[2023-02-21] MEDS ORDERED: DOCU100 PO (10:16)
[2023-02-21] MEDS ORDERED: LANTUS SOL100 UNIT/1 SC (10:17)
[2023-02-21] MEDS ORDERED: LORA.5 PO (10:19)
[2023-02-21] MEDS ORDERED: HUMALOG KW100 UNIT/1 SC (10:19)
[2023-02-21] MEDS ORDERED: ONDA4ODT MM (10:19)
[2023-02-21] MEDS ORDERED: [UNRECOGNIZED DRUG - OTHER] LEFTEYE (10:21)
[2023-02-21] MEDS ORDERED: SYSTANE GEL10 GM LEFTEYE (10:22)
[2023-02-21] MEDS ORDERED: OXYC10ER PO (10:22)
[2023-02-21] MEDS ORDERED: OXYC5 PO (10:23)
[2023-02-21] MEDS ORDERED: PANT20 PO (10:25)
[2023-02-21] MEDS ORDERED: PROM25 PO (10:25)
--- NOTE | 2023-02-21 11:42 | NUR ---
DC HOME TO HOSPICE WRITTEN & VERBAL DC INSTRUCTIONS GIVEN TO PT, PT VERBALIZED GOOD UNDERSTANDING. ALL CONCERNS & QUESTIONS ADDRESSED. PT HAS NO IV TO DC. 2 WRITTEN SCRIPTS FOR HOSPICE PROVIDED TO PT AND PLACED IN DC PKT, INFORMED PT TO GIVE THEM TO HOSPICE NURSE. [facility] HERE, TRANSPORT PERSONNEL GIVEN REQUIRED PAPERWORK. PT HOME WITH ALL PERSONAL BELOMGINGS.
== END 2023-02-21 11:17 | disposition hospice, home (50) | DRG 843 ==
LOC: ER 22:19 → MEDS 22:20 → ENPENDDIS 02-21 10:10 → MEDS 02-21 11:17
PROVIDERS: Internal Medicine; Student in an Organized Health Care Education/Training Program; ADMIT Student in an Organized Health Care Education/Training Program
DX: C7B.8 Other secondary neuroendocrine tumors (principal); A41.9 Sepsis, unspecified organism; E43 Unspecified severe protein-calorie malnutrition; J18.9 Pneumonia, unspecified organism; R65.20 Severe sepsis without septic shock; E87.20 Acidosis, unspecified; R64 Cachexia; Z68.1 Body mass index [BMI] 19.9 or less, adult; B02.9 Zoster without complications; Z66 Do not resuscitate; F41.9 Anxiety disorder, unspecified; Z51.5 Encounter for palliative care; E11.9 Type 2 diabetes mellitus without complications; G89.3 Neoplasm related pain (acute) (chronic); R91.1 Solitary pulmonary nodule; D72.829 Elevated white blood cell count, unspecified; I25.10 Atherosclerotic heart disease of native coronary artery without angina pectoris; I10 Essential (primary) hypertension; E78.5 Hyperlipidemia, unspecified; Z88.8 Allergy status to other drugs, medicaments and biological substances; Z98.890 Other specified postprocedural states; Z90.49 Acquired absence of other specified parts of digestive tract; Z87.891 Personal history of nicotine dependence; Z79.82 Long term (current) use of aspirin; Z79.899 Other long term (current) drug therapy
CPT/HCPCS: 36415; 74177; 80048; 80053; 82947; 83605; 83690; 83735; 85025; 87040; 93005; 93010; 96361; 96365-59; 96372; 96375; 96376; 97110-CQ; 97162; 97530; 99285-25; A9270; C9113; G0378; J0780; J1170; J1650; J1815; J2405; J2543; J2765; J3010; J7030; J7040; J7120; Q9967